=== PATIENT | male | born 1970 | race Asian ===

== ENCOUNTER → 2018-09-09 | Emergency (ER) | payer BC, OTHER ==
[~2018-09-09] VITALS: Wt 78.4 kg
[~2018-09-09] MED LIST: FAMO-96 PO; PROM5SYR2 PO
[2018-09-09 05:20] VITALS: BP 146/81; PULSE 64; RESP 18
--- NOTE | 2018-09-09 05:46 | ERD ---
ER Documentation Chief Complaint Chief Complaint COUGH X'S 1 WEEK HPI 48-year-old male presents with complaint of cough for the past week. States he has been taking NyQuil but has not helped him sleep at night due to the cough. Patient denies fever, night sweats, weight loss, fatigue, hemoptysis, wheezing, dyspnea, pleuritic chest pain, or orthopnea. Denies past medical history. Denies allergies. Denies medications. Denies surgeries. Denies alcohol, tobacco, or drug use. ROS All systems reviewed and are negative except as per history of present illness. Medications Home Meds Active Scripts Promethazine HCl/Codeine (Prometh-Codein 6.25-10 mg/5 ml) 5 Ml Syrup, 5 ML PO Q4 for cough, #4 OZ Prov:GABY MENSAH 09/09/18 Famotidine* (Pepcid*) 20 Mg Tablet, 20 MG PO BID for GERD for 7 Days, TAB Prov:GABY MENSAH 09/09/18 PMhx/Soc History of Surgery: No Anesthesia Reaction: No Hx Neurological Disorder: No Hx Respiratory Disorders: No Hx Cardiac Disorders: No Hx Psychiatric Problems: No Hx Miscellaneous Medical Probl: Yes (kidney stones ) Hx Alcohol Use: No Hx Substance Use: No Hx Tobacco Use: No Smoking Status: Never smoker FmHx Family History: No diabetes, No coronary disease, No other Physical Exam Vitals Vital Signs Date Temp Pulse Resp B/P (MAP) Pulse Ox O2 O2 Flow FiO2 Time Delivery Rate 09/09/18 98.0 64 18 146/81 97 05:20 (102) Physical Exam Const: No acute distress Head: Atraumatic Eyes: Normal Conjunctiva ENT: Normal External Ears, Nose and Mouth. Neck: Full range of motion. No meningismus. Resp: Clear to auscultation bilaterally Cardio: Regular rate and rhythm, no murmurs Abd: Soft, non tender, non distended. Normal bowel sounds Skin: No petechiae or rashes Back: No midline or flank tenderness Ext: No cyanosis, or edema Neur: Awake and alert Psych: Normal Mood and Affect Procedures/MDM MDM: MDM: I have low suspicion for tubercolosis, pneumonia, pleural effusion, acute heart failure, foreign body aspiration, pulmonary embolism, pneumothorax, or other emergent etiology. Patients O2 sat is normal and is not having difficulty breathing, therefore patient is fit for discharge. Patient discharged with rx for promethazine with codeine and Pepcid for possible GERD and advised to follow up with PMD. Patient discharged with strict ER precautions. All questions answered at discharge. Departure Diagnosis: Primary Impression: Cough Condition: Stable Patient Instructions: Cough, Chronic, Uncertain Cause, (Adult) Referrals: [facility] YOU HAVE RECEIVED A MEDICAL SCREENING EXAM AND THE RESULTS INDICATE THAT YOU DO NOT HAVE A CONDITION THAT REQUIRES URGENT TREATMENT IN THE EMERGENCY DEPARTMENT. FURTHER EVALUATION AND TREATMENT OF YOUR CONDITION CAN WAIT UNTIL YOU ARE SEEN IN YOUR DOCTORS OFFICE WITHIN THE NEXT 1-2 DAYS. IT IS YOUR RESPONSIBILITY TO MAKE AN APPOINTMENT FOR FOLOW-UP CARE. IF YOU HAVE A PRIMARY DOCTOR --you should call your primary doctor and schedule an appointment IF YOU DO NOT HAVE A PRIMARY DOCTOR YOU CAN CALL OUR PHYSICIAN REFERRAL HOTLINE AT IF YOU CAN NOT AFFORD TO SEE A PHYSICIAN YOU CAN CHOSE FROM THE FOLLOWING [facility] [address] [facility]. [facility] [address] [facility] [address] [facility] [facility] [address] [facility]. [facility] [address] [facility]. [facility]. [address] Additional Instructions: FOLLOW UP WITH YOUR PRIMARY CARE PHYSICIAN TOMORROW.Return to this facility if you are not improving as expected. GABY MENSAH September 09, 2018 05:46
== END | disposition home or self-care (01) ==
LOC: FTE 05:18
DX: R05 Cough (principal)
CPT/HCPCS: 99283

== ENCOUNTER 2018-12-09 12:34 | Emergency (ER) | payer BC ==
[~2018-12-09] VITALS: Ht 160 cm; Wt 75.9 kg
[2018-12-09 12:54] VITALS: RESP 17; Ht 160 cm; Wt 75.9 kg
[2018-12-09 13:26] VITALS: BP 114/71; PULSE 72
--- NOTE | 2018-12-09 13:29 | ERD ---
ER Documentation Chief Complaint Chief Complaint PAIN ON BACK OF NECK, ELEVATED BP AT HOME, NO N/V HPI 48-year-old male presents with complaint of neck pain and hypertension earlier today. States that he took his blood pressure at home and it was 138/90. He does state that he took his blood pressure initially 2 times in the results within normal limits. Denies any having any history of hypertension. Denies any current neck pain. Patient denies flank pain, chest pain, headaches, vision problems, dyspnea, hemoptysis, SOB, hematuria. ROS All systems reviewed and are negative except as per history of present illness. Medications Home Meds Active Scripts Promethazine HCl/Codeine (Prometh-Codein 6.25-10 mg/5 ml) 5 Ml Syrup, 5 ML PO Q4 for cough, #4 OZ Prov:GABY MENSAH 09/09/18 Famotidine* (Pepcid*) 20 Mg Tablet, 20 MG PO BID for GERD for 7 Days, TAB Prov:GABY MENSAH 09/09/18 Allergies Allergies: Coded Allergies: No Known Allergy (Unverified , 12/09/18) PMhx/Soc Medical and Surgical Hx: pt denies Surgical Hx History of Surgery: No Anesthesia Reaction: No Hx Neurological Disorder: No Hx Respiratory Disorders: No Hx Cardiac Disorders: No Hx Psychiatric Problems: No Hx Miscellaneous Medical Probl: Yes (kidney stones ) Hx Alcohol Use: No Hx Substance Use: No Hx Tobacco Use: No Smoking Status: Never smoker FmHx Family History: No diabetes, No coronary disease, No other Physical Exam Vitals Vital Signs Date Temp Pulse Resp B/P (MAP) Pulse Ox O2 O2 Flow FiO2 Time Delivery Rate 12/09/18 97.5 85 17 133/83 98 12:54 (100) Physical Exam Const: No acute distress Head: Atraumatic Eyes: Normal Conjunctiva. PERRLA. ENT: Normal External Ears, Nose and Mouth. Neck: Full range of motion. No meningismus. Resp: Clear to auscultation bilaterally Cardio: Regular rate and rhythm, no murmurs Abd: Soft, non tender, non distended. Normal bowel sounds. No pulsatile masses. Skin: No petechiae or rashes Back: No midline or flank tenderness Ext: No cyanosis, or edema Neur: Awake and alert. CN I through XII intact. Psych: Normal Mood and Affect Procedures/MDM MDM: Patient presentation consistent with transient hypotension. Patient's vitals within normal limits in ER and patient had no complaints. I have low suspicion for hypertensive crisis, aortic dissection, carotid dissection, CVA, pulmonary edema, endorgan damage, or any other emergent condition. Patient advised to follow lifestyle regulations which can help reduce blood pressure. At this time, patient is stable for discharge and outpatient management. I have instructed the patient to follow-up with his/her primary care physician in 1 day. I have discussed with the patient the possibility of needing to see a specialist for further workup and imaging studies if symptoms persist. I have instructed the patient to promptly return to the ER for any new or worsening symptoms including but not limited to increased pain, fever, nausea, vomiting, weakness or LOC. The patient and/or family expressed understanding of and agreement with this plan. All questions were answered. Home care instructions were provided. DISCLAIMER: Inadvertent spelling and grammatical errors are likely due to EHR/dictation software use and do not reflect on the overall quality of patient care. Also, please note that the electronic time recorded on this note does not necessarily reflect the actual time of the patient encounter. Departure Diagnosis: Primary Impression: HTN (hypertension) Additional Impression: Neck pain Condition: Stable Patient Instructions: High Blood Pressure (Hypertension), Neck Pain, No Trauma Referrals: [facility] YOU HAVE RECEIVED A MEDICAL SCREENING EXAM AND THE RESULTS INDICATE THAT YOU DO NOT HAVE A CONDITION THAT REQUIRES URGENT TREATMENT IN THE EMERGENCY DEPARTMENT. FURTHER EVALUATION AND TREATMENT OF YOUR CONDITION CAN WAIT UNTIL YOU ARE SEEN IN YOUR DOCTORS OFFICE WITHIN THE NEXT 1-2 DAYS. IT IS YOUR RESPONSIBILITY TO MAKE AN APPOINTMENT FOR FOLOW-UP CARE. IF YOU HAVE A PRIMARY DOCTOR --you should call your primary doctor and schedule an appointment IF YOU DO NOT HAVE A PRIMARY DOCTOR YOU CAN CALL OUR PHYSICIAN REFERRAL HOTLINE AT IF YOU CAN NOT AFFORD TO SEE A PHYSICIAN YOU CAN CHOSE FROM THE FOLLOWING [facility] [address] [facility] [address] [facility] [facility] [address] [facility] [address] [facility] [facility] [address] [facility]. [facility] [address] Additional Instructions: FOLLOW UP WITH YOUR PRIMARY CARE PHYSICIAN TOMORROW.Return to this facility if you are not improving as expected. GABY MENSAH Dec 09, 2018 13:29
== END 2018-12-09 13:27 | disposition home or self-care (01) ==
LOC: FTE 12:34
DX: I10 Essential (primary) hypertension (principal)
CPT/HCPCS: 99282